=== PATIENT | female | born 1965 | race Caucasian/White ===

== ENCOUNTER 2018-06-12 12:25 | Emergency (ER) | payer OTHER ==
[2018-06-12] MEDS ORDERED: MAG HYDROX/AL HYDROX/SIMETH 30 ML UDCUP PO ONE (13:10)
[2018-06-12] MEDS ORDERED: LORazepam 2 MG/ML INJ IVP ONE (13:10)
--- NOTE | 2018-06-12 13:18 | EDPHY ---
H & P Time Seen by Provider: 06/12/18 12:40 HPI/ROS: HPI Stomach discomfort. Anxiety. 53-year-old female by private vehicle with her . They are currently traveling. She reports that last night she developed which she describes as for indigestion. She describes this as an epigastric discomfort with radiation and burning up into her lower mid chest. She has had this many times in the past and takes Nexium for. She reports that she took Nexium and Bentyl last night and had some relief and was able to sleep without issue. She reports that this morning the sensation came back, she took another Nexium and felt better but then while driving with her had a sensation of tingling all over her body. Her was concerned that maybe this could be her heart. They are currently traveling and are from [place]. They drove down here from [place] and are planning on driving home tomorrow. The patient is now feeling better. She denies any chest pain. She denies any significant abdominal pain. Her only cardiac risk factor is her age and she does smoke. ROS: Constitutional: No fever, no chills. As above. Eyes: No discharge. No changes in vision. ENT: No sore throat. No nasal congestion or rhinorrhea. Respiratory: No cough. No shortness of breath. Cardiac: No chest pain, no palpitations. Gastrointestinal: As above, no vomiting, no diarrhea. Genitourinary: No hematuria. No dysuria or increased frequency with urination. Musculoskeletal: No back pain. No neck pain. No myalgias or arthralgias. Skin: No rashes. Neurological: No headache. No focal weakness or altered sensation. Past medical history: GERD, anxiety, cholecystectomy. Her primary care physician prescribes her Xanax for her anxiety. She has not taken any Xanax today. Social history: Smoker. No alcohol. Here with her . Traveling. She is from [place]. Physical Exam: General Appearance: Alert, no distress. She appears comfortable. This patient is responding to questions appropriately and in full sentences. This patient appears well-hydrated and well-nourished. Eyes: Pupils equal and round no pallor or injection. No lid edema, erythema or injection. Respiratory: There are no retractions, lungs are clear to auscultation with good air movement bilaterally. Cardiovascular: Regular rate and rhythm. No murmur. Gastrointestinal: Abdomen is soft and nontender, no masses, bowel sounds normal. No focal tenderness at McBurney's point. No Chin sign. Neurological: Motor sensory function is grossly intact. Cranial nerves are normal. Gait is normal. Skin: Warm and dry, no rashes. Musculoskeletal: Neck is supple and nontender. Extremities are symmetrical. All joints range without pain or impingement. Psychiatric: No agitation. No depression. Database: EKG: EKG time is 12:53 p.m.; EKG shows a narrow complex normal sinus rhythm with a ventricular rate of 86. The SD, QRS, QT intervals are within normal limits. There are no ST-T wave changes indicative of ischemic or injury pattern. No evidence of right heart strain. Interpreted by me. Imaging: Procedures: Emergency department course: Triage vital signs reviewed. She was moderately hypertensive in triage and mildly tachycardic. She was not tachycardic on my exam. Her presentation is consistent with her GERD and anxiety. Her heart score puts her in the low risk category. I discussed working her up with her . They consent. She will be given 1 mg of IV Ativan for anxiety and some Maalox. 2:00 p.m., the patient was re-evaluated, she is resting comfortably at this time. She is feeling much better. She denies any symptoms and states that she feels much more relaxed. I discussed the results of her emergency department workup. She feels comfortable being discharged with her . I feel this is reasonable. She will follow up with her primary care physician when she returns home to [place]. I also stated that she should follow up with a archives director as well when she returns home to [place] early next week. Return to the emergency department precautions were discussed thoroughly with her and her . All of their questions were answered. The patient was discharged in good condition with her who is driving. Differential Diagnosis: The differential diagnosis on this patient includes but is not limited to GERD, gastritis, anxiety. Acute coronary syndrome, cholecystitis, pancreatitis, perforated peptic ulcer unlikely. This represents a partial list of diagnoses considered. These considerations are based on history, physical exam, past history, reassessment and diagnostic testing. Smoking Status: Heavy smoker Constitutional: Initial Vital Signs Temperature (C) 37.3 C 06/12/18 12:37 Heart Rate 103 H 06/12/18 12:37 Respiratory Rate 16 06/12/18 12:37 Blood Pressure 151/102 H 06/12/18 12:37 O2 Sat (%) 94 06/12/18 12:37 O2 Delivery Mode Room Air Allergies/Adverse Reactions: No Known Allergies Allergy (Unverified 06/12/18 12:44) Home Medications: Medication Instructions Recorded Dicyclomine HCl 06/12/18 Omeprazole 06/12/18 Xanax 06/12/18 Medical Decision Making - Data Points Laboratory Results: 06/12/18 06/12/18 13:25 13:16 POC Total Bilirubin 0.7 mg/dL mg/dL (0.1-1.4) POC GGT 40 IU/L IU/L (5-65) POC AST 41 IU/L IU/L (14-46) POC ALT 42 IU/L IU/L (9-52) POC Alk Phosphatase 115 IU/L IU/L (38-126) POC Troponin I 0.00 ng/mL ng/mL (0.00-0.08) POC Total Protein 7.7 g/dL g/dL (6.3-8.2) POC Albumin 4.4 g/dL g/dL (3.5-5.0) POC Amylase 41 IU/L IU/L (30-110) Medications Given: Discontinued Medications Al Hydroxide/Mg Hydroxide (Maalox Susp) 30 ml PO ONCE ONE Stop: 06/12/18 13:11 Last Admin: 06/12/18 13:23 Dose: 30 ml Lorazepam (Ativan Injection) 1 mg IVP EDNOW ONE Stop: 06/12/18 13:11 Last Admin: 06/12/18 13:23 Dose: 1 mg Point of Care Test Results: Chemistry 06/12/18 06/12/18 13:25 13:16 POC Total Bilirubin 0.7 mg/dL mg/dL (0.1-1.4) POC GGT 40 IU/L IU/L (5-65) POC AST 41 IU/L IU/L (14-46) POC ALT 42 IU/L IU/L (9-52) POC Alk Phosphatase 115 IU/L IU/L (38-126) POC Troponin I 0.00 ng/mL ng/mL (0.00-0.08) POC Total Protein 7.7 g/dL g/dL (6.3-8.2) POC Albumin 4.4 g/dL g/dL (3.5-5.0) POC Amylase 41 IU/L IU/L (30-110) Departure - Departure Disposition: Home, Routine, Self-Care Clinical Impression: GERD with esophagitis, Anxiety Condition: Good Instructions: Gastroesophageal Reflux Disease (ED), Anxiety (ED) Additional Instructions: Read and follow provided instructions. Follow-up with your primary care physician when you return home to [place] early next week. You should also follow up with a archives director for an evaluation. Continue taking your medication as prescribed. Return to the emergency department for worsening symptoms, chest pain, shortness of breath or other serious concerns. Referrals: MD RYAN [Other] - As per Instructions
[2018-06-12 14:02] VITALS: BP 142/86
--- NOTE | 2018-06-13 14:51 | CPEKG ---
Test Reason : OPEN Blood Pressure : / mmHG Vent. Rate : 086 BPM Atrial Rate : 086 BPM P-R Int : 134 ms QRS Dur : 085 ms QT Int : 376 ms P-R-T Axes : 061 024 044 degrees QTc Int : 450 ms Sinus rhythm Confirmed by Carla Delacruz ([id number]) on 06/13/2018 2:50:33 PM Referred By: Confirmed By:Carla Delacruz
== END 2018-06-12 14:01 | disposition home or self-care (01) ==
LOC: CED 12:25
DX: K21.0 Gastro-esophageal reflux disease with esophagitis (principal); F41.9 Anxiety disorder, unspecified
CPT/HCPCS: 80076-ER; 82150-ER; 84484-ER; 96374-ER; 99284-ER; J2060